=== PATIENT | male | born 2000 ===

== ENCOUNTER 2024-12-03 12:26 | Outpatient (AMB) | payer OTHER, SELFPAY ==
--- NOTE | 2024-12-03 12:29 | MHC.PC.OV ---
Vital Signs 12/03/24 12:34 Height 5 ft 6 in Weight 203 lb 8 oz BMI 32.8 BP 114/72 Blood Pressure Location Lt brachial Position Sitting Respiration 17 Pulse 58 Temp 98.7 F Temp Source Oral Pulse Oximetry (%) 98 Oxygen Delivery Method Room Air Intake Visit Reasons: DIRECTOR OF AUTOMATION/PErequest Intake Note: Pt is here today as a new patient establishing care. Allergies amoxicillin Adverse Reaction (Mild, Verified 12/03/24 12:52) Hives Medication List - Last Reconciled 12/03/24 by ABBE Mendez No Known Home Meds Tobacco use date assessed: 12/03/24 Dental Screening Dental Screen Date: 12/03/24 Did you have a dental visit in the last 12 months?: Yes Did you have a dental problem in the last 6 months where you did not have access to dental care?: No Was dental information given to patient?: Patient has dentist HPI DIRECTOR OF AUTOMATION/PErequest HPI Details History of Present Illness The patient is a 24-year-old male presenting for a wellness visit. He reports no symptoms of fever, chills, chest pain, shortness of breath, abdominal pain, bloody stools, constipation, or diarrhea. Urinary issues are also denied. There is no history of anxiety, depression, and no suicidal or homicidal thoughts. He has started receiving care at this practice and seeks to establish care through this examination. He works as a insulation mechanic and engages in regular physical activity by frequenting the gym. There are no prior medical diagnoses impacting the current assessment of wellness. Health Maintenance - Encouraged continuation of regular exercise such as gym activities - Labs ordered requiring fasting to be completed in the near future for routine evaluation Social History - Occupation: Credit Review Analyst - Exercise: Regularly attends gym Review of Systems - General: Denies fevers, chills - Cardiovascular: Denies chest pain - Respiratory: Denies shortness of breath - Gastrointestinal: Denies abdominal pain, bloody stools, constipation, diarrhea - Genitourinary: Denies urinary issues - Psychiatric: Denies anxiety, depression, suicidal ideation, homicidal ideation Physical Exam General: Cooperative, healthy appearing, comfortable, no acute distress and well developed Orientation: Patient oriented x3 Limitations: No limitations Head: Normal to inspection Ears: Hearing grossly normal bilaterally Nose: Normal external nose present Face and sinus: Normal facial exam Eyes: Appearance normal, both eyes and all related structures Neck: Normal visual inspection and Yes full ROM Respiratory: Normal respiratory effort and able to speak in complete sentences. Clear to auscultation bilaterally Cardiovascular: Regular rate and rhythm. Normal S1 and S2 GI: Normal to inspection. Soft to palpation and nontender Skin: No rashes or lesions noted Neuro: Patient oriented x3 Extremities: Normal to inspection Results - Labs: Fasting labs ordered for future evaluation Plan The patient will have routine fasting labs conducted to establish a baseline health profile. He is encouraged to continue his regular gym activities to promote physical fitness. Preventive care remains the priority given the absence of acute medical concerns. Discussion Notes I explained the importance of regular physical activity and continued preventive health measures. We discussed obtaining fasting blood work for a routine health evaluation. The patient was advised that no urgent health issues are suspected at present, and he was encouraged to maintain his current level of physical activity. We will review the lab results during a follow-up appointment if necessary. Patient Instructions - Continue regular exercise at the gym - Complete fasting labs as soon as possible - Follow up as needed based on lab results [facility] Surgical History No pertinent past surgical history Family History Other Substance abuse Social History Housing: Apartment Patient Tobacco Use Status: Never used Tobacco e-Cigarette/Vaping Use: Never Used service: No Current occupational status: employed Cognitive needs: No Hearing needs: No Vision needs: No Questionnaire PHQ-9 Over the last 2 weeks, how often have you been bothered by any of the following problems? 1. Little interest or pleasure in doing things: not at all 2. Feeling down, depressed, or hopeless: not at all 3. Trouble falling or staying asleep, or sleeping too much: not at all 4. Feeling tired or having little energy: not at all 5. Poor appetite or overeating: not at all 6. Feeling bad about yourself - or that you are a failure or have let yourself or your family down: not at all 7. Trouble concentrating on things, such as reading the newspaper or watching television: not at all 8. Moving or speaking so slowly that other people could have noticed. Or the opposite - being so fidgety or restless that you have been moving around a lot more than usual: not at all 9. Thoughts that you would be better off or of hurting yourself in some way: not at all Total score: 0 Depression Screening Interpretation: Negative Depression Screening Done: Yes 44218 - PHQ-9 Billing: Yes Source: Developed by Drs. Timur Walters, Karey Acuña, Lavelle Jarrell and colleagues, with an educational emani from [employer]. Thrive Questionnaire Date Thrive assessed: 12/03/24 I am a: Patient What is your living situation today?: I have a steady place to live Within the past 12 months, did the food you bought not last and you didn't have the money to get more?: Never true Within the past 12 months, did you worry whether your food would run out before you got money to buy more?: Never true Do you have trouble paying for medicines?: No Do you have trouble getting transportation to medical appointments?: No Do you have trouble paying your heating and electricity bill?: No Do you have trouble taking care of your child, family member or friend?: No Do you have trouble with day-to-day activities such as bathing, preparing meals, shopping, managing finances, etc.?: No Are you currently unemployed and looking for a job?: No Are you interested in more education?: No Please select the resources that you would like help with: None Currently or been in a relationship where the following occur: No concerns reported THRIVE Score: 0 AUDIT C Alcohol Use Questionnaire (AUDIT-C) 1. How often do you have a drink containing alcohol?: Never 3. How often do you have six or more drinks on one occasion?: Never Total Score: 0 Score Reviewed/Action Taken: Yes KOKO-7 AMB Questionnaire KOKO-7 Date KOKO - 7 assessed: 12/03/24 Feeling nervous, anxious, or on edge: 1 = Several days Not being able to stop or control worryin = Not at all Worrying too much about different things: 1 = Several days Trouble relaxin = Several days Being so restless that it is hard to sit still: 1 = Several days Becoming easily annoyed or irritable: 1 = Several days Feeling afraid as if something awful might happen: 0 = Not at all Total KOKO-7 score (0-4 normal; 5-9 mild; 10-14 moderate; 15-21 severe): 5 Source: Developed by Drs. Timur Walters, Karey Acuña, Lavelle Jarrell and colleagues, with an educational emani from [employer]. KOKO-7 Assessment Billing KOKO-7 Assessment Tool: KOKO-7 Assessment 14774 Physical exam (Primary Care) Vital Signs: Last Vital Signs Temp 98.7 F 12/03/24 12:34 Pulse 58 12/03/24 12:34 Resp 17 12/03/24 12:34 BP 114/72 12/03/24 12:34 Pulse Ox 98 12/03/24 12:34 Oxygen Delivery Method Room Air 12/03/24 12:34 BMI result Body Mass Index 32.8 Tobacco/Smoking Status: Tobacco use Status Tobacco use date assessed 12/03/24 12/03/24 12:32 Patient Tobacco Use Status Never used Tobacco 12/03/24 12:37 e-Cigarette/Vaping Use Never Used 12/03/24 12:37 PHQ-9: PHQ-9 Score PHQ-9: Total score 0 12/03/24 12:37 Depression Screening Interpretation: Negative Thrive Assessment: Date of Thrive Assessment Date Thrive assessed 12/03/24 12/03/24 12:37 Currently or been in a relationship where the following occur: No concerns reported Coding Level of Care Code Est Pt Prev Care 18-39y(06311) Diagnoses Physical exam Z00. Additional Codes KOKO-7 Assessment Billing - KOKO-7 Assessment Tool: KOKO-7 Assessment 67409 ([id number]) PHQ-9 - 95796 - PHQ-9 Billing: Yes ([id number]) Assessment & Plan Assessment & Plan (1) Physical exam: Code(s): Z00.00 - Encounter for general adult medical examination without abnormal findings Category: Medical Plan . Orders: Orders TSH reflex Free T4 Today Z00.00 - Encounter for general adult medical examination without abnormal findings UA CC w/rflx Micro + Cult Today Z00.00 - Encounter for general adult medical examination without abnormal findings Lipid Panel Today Z00.00 - Encounter for general adult medical examination without abnormal findings Complete Blood Count Auto Diff Today Z00.00 - Encounter for general adult medical examination without abnormal findings Comprehensive [place]. Panel Fast Today Z00.00 - Encounter for general adult medical examination without abnormal findings
[2024-12-03 12:34] VITALS: BP 114/72; PULSE 58; RESP 17; TEMP 37.1; O2SAT 98; BMI 32.8
== END 2024-12-03 13:01 | disposition home or self-care (01) ==
PROVIDERS: PCP Nurse Practitioner Family; Visit Provider Nurse Practitioner Family
DX: Z00.00 Encounter for general adult medical examination without abnormal findings (principal)

== ENCOUNTER → 2024-12-03 12:26 | Outpatient (BNVA) | payer OTHER, SELFPAY | PROVIDERS: PCP Nurse Practitioner Family; Visit Provider Nurse Practitioner Family | DX: Z00.00 Encounter for general adult medical examination without abnormal findings (principal) | CPT/HCPCS: 96127 ==